=== PATIENT | male | born 1945 | race Caucasian/White ===

== ENCOUNTER 2021-04-30 14:35 | Outpatient (REF) | payer MEDICARE, SELFPAY ==
[2021-04-30 16:53] LABS: Abs Immature Grans 0.07 10^3/uL (0.0-0.06); Absolute Basophil Count 0.02 10^3/uL (0.0-0.2); Absolute Eosinophil Count 0.03 10^3/uL (0.0-0.7); Absolute Lymphocyte Count 1.24 10^3/uL (1.2-3.4); Absolute Monocyte Count 0.34 10^3/uL (0.1-0.8); Absolute Neutrophil Count 3.16 10^3/uL (1.2-6.7); Basophils % 0.4; Eosinophils % 0.6; HCT 38.9 % (40.0-50.0); HGB 12.9 g/dL (13.5-17.5); Immature Grans % 1.4; Lymphocytes % 25.5; MCH 31.7 pg (27.0-33.0); MCHC 33.2 % (32.0-36.0); MCV 95.6 fL (80-95); MPV 10.4 fL (8.0-11.0); Neutrophils % 65.1; Nucleated RBC 0 %; Platelet Count 128 10^3/uL (130-400); RBC 4.07 10^6/uL (4.36-5.78); RDW 12.4 % (11.8-14.1); RDW-SD 43.8 fL; WBC 4.86 10^3/uL (4.4-10.8)
[2021-04-30 21:30] LABS: Rheumatoid Factor <8.6 IU/mL (<12.0)
[2021-05-01 09:18] LABS: IgA 387 mg/dL (85-499); IgG 1328 mg/dL (610-1,616); IgM 80 mg/dL (35-242)
[2021-05-01 10:18] LABS: Cyclic Citrullinated Peptide <2.5 U/mL (<5.0)
[2021-05-02 10:30] LABS: IgE 160 IU/mL (<158)
[2021-05-02 14:01] LABS: ANA Interpretation Positive (Negative); ANA Titer Pattern 1:80 Homogeneous; ANA Titer Pattern 2 1:160 Speckled
== END 2021-04-30 14:36 | disposition home or self-care (01) ==
LOC: LBN 14:35
PROVIDERS: Student in an Organized Health Care Education/Training Program; Visit Provider Family Medicine
DX: J47.9 Bronchiectasis, uncomplicated (principal)
CPT/HCPCS: 82784; 86200; 82785; 82787; 85025; 86038; 86431

== ENCOUNTER 2021-05-01 21:58 | Outpatient (REF) | payer MEDICARE, SELFPAY ==
--- OUTSIDE RECORDS SUMMARY | 2021-05-01 22:03 | XMS_ITS ---
:1945 Author Care Team Providers Name Role Phone Unavailable Orthopedic Surgeon Unavailable TERRELL VELÁSQUEZ MD Horologist Unavailable ANDREW SAMUEL DO Primary Care Provider [phone] GISELE WALSH General Surgeon [phone] REUBEN CLARK MD Urologist [phone] JENNIFER GEORGE MD Technical Project Lead [phone] Allergies Code Code System Name Reaction Severity Status Onset 1191 RxNorm Aspirin ? ? Active ? 9062176 RxNorm Latex ? ? Active ? 325335 RxNorm Levaquin ? ? Active ? Penicillins ? ? Active ? Medications Name Status Start Date Stop Date ? ? albuterol sulfate 1.25 mg/3 mL solution for nebulization Active ? Not available INHALE THE CONTENTS OF ONE VIAL VIA NEBULIZER FOUR TIMES A DAY amlodipine 2.5 mg tablet Completed 07/06/2017 017 1 (one) Tablet: daily Arnuity Ellipta 100 mcg/actuation powder for inhalation Active ? Not available Inhale 1 puff twice a day by inhalation route for 90 days. azithromycin 250 mg tablet Completed ? 02/07 benzonatate 200 mg capsule Completed 12/19/201512/28 1 (one) Capsule: every 8 hours prn cough bisacodyl 10 mg rectal suppository Completed ? 02/08/2020 Insert 1 suppository every day by rectal route for 5 days. carvedilol 12.5 mg tabs Completed ? 020 carvedilol 12.5 mg tablet Active ? Not av ailable TAKE ONE TABLET BY MOUTH TWICE A DAY cephalexin 500 mg capsule Completed ? 2017 cephalexin 500 mg tablet Completed ? 018 Take 1 tablet every 6 hours by oral route for 5 days. ciprofloxacin 500 mg tablet Completed ? 11/12 colchicine 0.6 mg tablet Active ? Not jazmine ilable Take 2 tablets every day by oral route as directed. combivent aer 20-100 Completed ? 05/09/20 20 Combivent Respimat 20 mcg-100 mcg/actuation solution for inhalat ion Active ? Not available INHALE ONE PUFF BY MOUTH FOUR TIMES A DAY cyclobenzaprine 10 mg tablet Completed 06/30/2016 1 (one) Tablet: every eight hours, as needed doxycycline hyclate 100 mg capsule Completed ? 01/31/2019 Take 1 capsule twice a day by oral route. doxycycline hyclate 100 mg tablet Completed ? 01/31/2019 doxycycline hyclate 150 mg tablet,delayed release Completed 07/21/2017 07/31/2017 1 Tablet: bid - twice daily erythromycin 5 mg/gram (0.5 %) Completed ? 1 eye ointment fluorometholone 0.1 % eye drops,suspension Active ? Not available right eye daily at night fluoxetine 10 mg tablet Completed 05/13/2015 08/16/20 15 1 (one) Tablet Tablet: daily flutic/salme aer 500/50 Completed ? 05/09/20 20 fluticasone 500 mcg-salmeterol 50 mcg/dose blistr powdr for inha lation Active ? Not available INHALE 1 PUFF BY MOUTH TWICE DAILY Fluzone High-Dose [id number] (PF) Completed ? 08/10/2018 180 mcg/0.5 mL intramuscular syringe Fluzone High-Dose Quad (PF) 240 mcg/0.7 mL IM syringe Ac tive ? Not available INJECT ONCE Virtussin AC 10 mg-100 mg/5 mL Active ? N ot available oral liquid hydrocodone 5 mg-acetaminophen Completed ? 0 12/16/2018 325 mg tablet hydroxyzine HCl 25 mg tablet Active ? Not available 1 daily ibuprofen 600 mg tablet Completed ? 12/17/19 19 ibuprofen 800 mg tablet Active ? Not avai lable TAKE ONE TABLET BY MOUTH THREE TIMES A DAY indomethacin ER 75 mg capsule,extended release Completed 1 10/16/2014 03/23/2016 1 (one) Capsule ER Capsule ER: daily, as needed lactulose 10 gram/15 mL oral Completed ? solution lactulose 20 gram/30 mL oral solution Active ? Not available Take 30 mL twice a day by oral route as needed. levofloxacin 500 mg tablet Active ? Not a vailable levofloxacin 750 mg tablet Completed ? 04/15 lidocaine 5 % topical patch Active ? Not available lisinopril 5 mg tabs Completed ? 05/09/2020 lisinopril 5 mg tablet Active ? Not avail able Mucinex 600 mg tablet, extended release Active ? Not available Take 1 tablet every 12 hours by oral route. oxycodone 5 mg tablet Completed ? 08/10/2018 oxygen Active ? Not available daily pramipexole 0.25 mg tablet Active ? Not a vailable TAKE ONE TABLET BY MOUTH TWICE A DAY pramipexole dihydrochloride 0.25 Completed ? 05/09/2020 mg tabs prednisone 5 mg tabs Completed ? 05/09/2020 prednisone 10 mg tablet Completed ? 02/01/20 19 prednisone 20 mg tablet Completed ? 02/08/20 20 prednisone 5 mg tablet Active ? Not avail able prednisone 5 mg/5 mL oral solution Completed 12/19/2015 03/23/2016 1 (one) Solution: Each morning probenecid 500 mg tabs Completed ? 05/09/20 20 probenecid 500 mg tablet Active ? Not jazmine ilable TAKE ONE TABLET BY MOUTH TWICE A DAY ranitidine 300 mg capsule Completed 07/06/20172016 1 (one) Capsule: daily ropinirole 1 mg tablet Active ? Not avail able TAKE 1 TABLET BY MOUTH ONCE DAILY AT BEDTIME Spiriva with HandiHaler 18 mcg and inhalation capsules Completed 03/07/2015 07/17/2015 1 (one) Capsule Capsule: qd - daily stiolto aer 2.5-2.5 Active ? Not jazmine ilable Stiolto Respimat 2.5 mcg-2.5 mcg/actuation solution for inhalati on Active ? Not available INHALE 2 PUFFS BY MOUTH EVERY MORNING sulfamethoxazole 800 Completed ? 11/23/2019 mg-trimethoprim 160 mg tablet tadalafil 5 mg tablet Active ? Not availa ble Take 1 tablet every day by oral route for 30 days. tamsulosin 0.4 mg capsule Active ? Not av ailable TAKE ONE CAPSULE BY MOUTH TWICE A DAY temazepam 30 mg caps Completed ? 05/09/2020 temazepam 30 mg capsule Active ? Not avai lable Tessalon Perles 100 mg capsule Active ? N ot available Take 2 capsules 3 times a day by oral route as needed. theophylline er 600 mg tb24 Completed ? theophylline ER 600 mg tablet,extended release 24 hr Active ? Not available TAKE ONE TABLET BY MOUTH TWO TIMES A DAY Trelegy Ellipta 200 mcg-62.5 mcg-25 mcg powder for inhalation Ac tive ? Not available Inhale 1 puff every day by inhalation route for 30 days. Zyrtec 10 mg tablet Active ? Not availabl e Take 1 tablet every day by oral route for 30 days. Notes: reviewed with pt- 0 Problems Name Status Onset Date Source ? Chronic Obstructive Lung Disease Unknown 10/20/2018 ? Anxiety Active 12/16/2018 ? Bronchiectasis Active 12/21/2018 ? Chronic Obstructive Lung Disease Active 02/28/2019 ? Urinary Incontinence Active 02/21/2020 ? Nocturia Active 02/21/2020 ? Gout Active ? History Insomnia Active ? History Hypertensive Disorder Active ? History Heart Failure Active ? History Disorder of Upper Respiratory System Unknown ? History Acute Exacerbation of Chronic Unknown ? Hi story Obstructive Airways Disease Severe Persistent Asthma Unknown ? History Bronchiectasis Unknown ? History Chronic Obstructive Lung Disease Unknown ? History Chronic Kidney Disease Stage 3 Active ? H istory Chronic Kidney Disease Active ? History Large Prostate Active ? History Itching Active ? History Arthropathy Active ? History Shoulder Joint Pain Active ? History Neck Pain Active ? History Torticollis Active ? History Osteoporosis Active ? History Anesthesia of Skin Active ? History Pleuritic Pain Unknown ? History Placentography Abnormal Unknown ? History Active Immunization Unknown ? History Disorder of Skin And/or Subcutaneous Active ? History Tissue Adult Health Examination Unknown ? History Screening for Malignant Neoplasm of Unknown ? History Prostate Screening for Cardiovascular System Unknown ? History Disease General Examination of Patient Unknown ? H istory Disorder of Phosphate, Calcium and Unknown ? History Vitamin D Metabolism Procedure by Method Unknown ? History Procedures Date Name Performed by ? 10/18/2018 Open Reduction of Fracture with Internal Fixation Information not available Notes: R distal radius fx, has hardwa re 10/10/2006 Shoulder Surgery Information not avai lable Notes: Right Shoulder Biceps Tendon R epair 03/21/2018 US, Echocardiogram [facility] [address], [place] [address] ([address]) 04/28/2018 XR, Knee, 4 or More View [facility] Rad[facility] (Internal) [address] [place] [address] (Work Place) 08/10/2018 Electrocardiogram [facility] [address] [place] [address] (Work Place) 08/10/2018 [facility] [address] [place] [address] (Work Place) 10/26/2018 XR, Chest, [facility] [address] [place] [address] (Work Place) 11/02/2018 XR, Wrist, [facility] [address] [place] [address] (Work Place) 11/16/2018 XR, Wrist, [facility] [address] [place] [address] (Work Place) 11/18/2018 XR, Chest, [facility] [address] [place] [address] (Work Place) 12/16/2018 XR, Wrist, 2 View [facility] Radiology (Internal) [address] [place] [address] (Work Place) 01/19/2019 XR, Wrist, 2 View [facility] Radiology (Internal) [address] [place] [address] (Work Place) 04/05/2019 XR, Ankle, 3 or More View [facility] Radiology (Internal) [address] [place] [address] (Work Place) 11/06/2020 XR, Chest, [facility] [address] [place] [address] (Work Place) 11/14/2020 CT, Chest, [facility] [address] [place] [address] (Work Place) Notes: right shoulder surgery 30 03 Results Lab Results Date Name Specimen Result Interpretation Description Value Range Status Address ? 02/23/2020 Urinalysis, Urine ? Color Yellow ? ? P _urology: Dipstick, Reflex [address] [facility] ? ? Urine ? Appearanc Clear ? ? P_urol ogy: e [address] [facility] ? ? Urine ? Glucose Normal ? ? P_urolog y: [address] [facility] ? ? Urine ? Bilirubin Negative ? ? P_ur ology: [address] [facility] ? ? Urine ? Ketones Negative ? ? P_urol ogy: [address] [facility] ? ? Urine ? Specific 1.020 ? ? P[facility]urolo gy: [place] [facility] ? ? Urine ? Blood Negative ? ? P_urolog y: [address] [facility] ? ? Urine ? Ph 6.0 ? ? P_urology: [address] [facility] ? ? Urine ? Protein Negative ? ? P_urol ogy: [address] [facility] ? ? Urine ? Urobilino 0.2 ? ? P_urol ogy: gen [address] [facility] ? ? Urine ? Nitrite negative ? ? P_urol ogy: [address] [facility] ? ? Urine ? Leukocyte Negative ? ? P_ur ology: Esterase 41 [facility] 02/08/2020 PSA, Serum or S ? PSA, 0.4 NG/mL 0.0-4. [facility] Plasma Total 0 Country NG/mL Hospital Lab (Internal) : [address] 02/08/2020 Venipuncture Blood ? Location Left ? ? P_nc venous Antecubital [facility] [place]: [address] , [place] ? ? Blood ? Needle 21g ? ? P_nc venous Vacutainer [facility] [place]: [address] , [place] ? ? Blood ? Number of 1 ? ? P_nc venous Attempts [facility] [place]: [address] , [place] ? ? Blood ? Successfu Yes ? ? P_nc venous l [facility] [place]: [address] , [place] ? ? Blood ? Dressing Pressure ? ? P_nc venous Band-aid Primary [facility] [place]: [address] 07/18/2019 CBC W/ Auto Diff BLD - Wbc 6.5 10*3/uL 5.0-1 0 Final North .0 [place] 10*3/u Hospital L Lab (Internal) : [address] ? ? BLD Low Rbc 4.51 4.60-6 Final North 10*6/uL .00 [facility] 10*6/u Hospital L Lab (Internal) : [address] ? ? BLD - Hgb 14.1 g/dL 14.0-1 Final North 8.0 [place] g/dL Hospital Lab (Internal) : [address] ? ? BLD - Hct 41.9 % 41.0-5 Final [place] 1.0 % [facility] Lab (Internal) : [address] ? ? BLD - Mcv 92.9 fL 80.0-9 Final [place] 6.0 fL [facility] Lab (Internal) : [address] ? ? BLD - Mch 31.3 pg 26.0-3 Final [place] 2.0 pg [facility] Lab (Internal) : [address] ? ? BLD - Mchc 33.7 g/dL 31.0-3 Final [place] 5.0 [place] g/dL Hospital Lab (Internal) : [address] ? ? BLD - Rdw 13.2 % 11.5-1 Final [place] 4.5 % [facility] Lab (Internal) : [address] ? ? BLD - Plt 176 10*3/uL 130-45 Final North 0 [facility] 10*3/u Hospital L Lab (Internal) : [address] ? ? BLD - Anc 3.75 ? Final [place] 10*3/uL [facility] (Internal) : [address] ? ? BLD - Neutro 57.3 % 40.0-7 Final [place] 5.0 % [facility] Lab (Internal) : [address] ? ? BLD - Lymph 31.5 % 20.0-5 Final [place] 0.0 % [facility] (Internal) : [address] ? ? BLD - [place] 9.5 % 2.0-10 Final North .0 % [facility] Lab (Internal) : [address] ? ? BLD Low Eos 0.8 % 1.0-6. Final North 0 % [facility] Lab (Internal) : [address] ? ? BLD - Baso 0.3 % 0.0-1. Final North 0 % [facility] Lab (Internal) : [address] ? ? BLD - Ig 0.6 % 0.0-0. Final North 9 % [facility] Hospital Lab (Internal) : [address] 07/18/2019 BMP, Serum or S - g/r 89 mg/dL 74-106 Pallavi l [place] Plasma mg/dL [facility] Hospital Lab (Internal) : [address] ? ? S High Bun 30 mg/dL 9-20 Final [place] mg/dL [facility] Hospital Lab (Internal) : [address] ? ? S - Crea 1.00 mg/dL 0.66-1 Final North .25 [place] mg/dL Hospital Lab (Internal) : [address] ? ? S High Ca 10.4 mg/dL 8.4-10 Final [place] .2 [place] mg/dL Hospital Lab (Internal) : [address] ? ? S - Na 139 mmol/L 137-14 Final [place] 5 [place] mmol/L Hospital Lab (Internal) : [address] ? ? S - K 4.1 mmol/L 3.5-5. Final [place] 1 [place] mmol/L Hospital Lab (Internal) : [address] ? ? S - Cl 101 mmol/L 98-107 Final [place] mmol/L [facility] Lab (Internal) : [address] ? ? S - Tco2 26.0 mmol/L 22.0-3 Final [place] 0.0 [place] mmol/L Hospital Lab (Internal) : [address] 07/18/2019 Prothrombin Time BLD - Pt 10.6 S 9.1-11 Fin al [place] .7 S [facility] Lab (Internal) : [address] ? ? BLD - Inr 1.1 ? Final [facility] Hospital Lab (Internal) : [address] 07/18/2019 Partial BLD - PTT (Ip) 25 s 22-35 Final No rth Thromboplastin s Co untry Time Hospital Lab (Internal) : [address] 07/18/2019 Troponin I, S - Trop <0.06 NG/mL 0.00-0 Fin [facility] Serum or Plasma .06 C [place]untry NG/mL Hospital Lab (Internal) : [address] 07/18/2019 Troponin I, S - Trop <0.06 NG/mL 0.00-0 Fin [facility] Serum or Plasma .06 C ountry NG/mL Hospital Lab (Internal) : [address] 05/19/2019 CBC W/ Auto Diff BLD - Wbc 8.8 10*3/uL 5.0-1 0 Final North .0 [facility] 10*3/u Hospital L Lab (Internal) : [address] ? ? BLD Low Rbc 3.72 4.60-6 Final [place] 10*6/uL .00 [facility] 10*6/u Hospital L Lab (Internal) : [address] ? ? BLD Low Hgb 11.8 g/dL 14.0-1 Final [place] 8.0 [place] g/dL Hospital Lab (Internal) : [address] ? ? BLD Low Hct 35.1 % 41.0-5 Final [place] 1.0 % [facility] Lab (Internal) : [address] ? ? BLD - Mcv 94.4 fL 80.0-9 Final [place] 6.0 fL [facility] (Internal) : [address] ? ? BLD - Mch 31.7 pg 26.0-3 Final [place] 2.0 pg [facility] Lab (Internal) : [address] ? ? BLD - Mchc 33.6 g/dL 31.0-3 Final [place] 5.0 [place] g/dL Hospital Lab (Internal) : [address] ? ? BLD - Rdw 13.6 % 11.5-1 Final [place] 4.5 % [facility] (Internal) : [address] ? ? BLD - Plt 136 10*3/uL 130-45 Final [place] 0 [facility] 10*3/u Hospital L Lab (Internal) : [address] ? ? BLD - Anc 6.58 ? Final [place] 10*3/uL [facility] (Internal) : [address] ? ? BLD - Neutro 74.5 % 40.0-7 Final [place] 5.0 % [facility] (Internal) : [address] ? ? BLD Low Lymph 13.8 % 20.0-5 Final [place] 0.0 % [facility] (Internal) : [address] ? ? BLD - [place] 8.9 % 2.0-10 Final [place] .0 % [facility] (Internal) : [address] ? ? BLD Low Eos 0.7 % 1.0-6. Final [place] 0 % [facility] Lab (Internal) : [address] ? ? BLD - Baso 0.2 % 0.0-1. Final [place] 0 % [facility] Lab (Internal) : [address] ? ? BLD High Ig 1.9 % 0.0-0. Final [place] 9 % [facility] Lab (Internal) : [address] 05/19/2019 CMP, Serum or S High g/r 115 mg/dL 74-106 Fin al [place] Plasma mg/dL [facility] Lab (Internal) : [address] ? ? S - Bun 18 mg/dL 9-20 Final [place] mg/dL [facility] (Internal) : [address], Daniel t ? ? S - Crea 0.90 mg/dL 0.66-1 Final [place] .25 [place] mg/dL Hospital Lab (Internal) : [address], Daniel t ? ? S - Ca 9.3 mg/dL 8.4-10 Final [place] .2 [facility] mg/dL Hospital Lab (Internal) : [address], Daniel t ? ? S - Na 137 mmol/L 137-14 Final [place] 5 [place] mmol/L Hospital Lab (Internal) : [address] ? ? S - K 4.0 mmol/L 3.5-5. Final [place] 1 [place] mmol/L Hospital Lab (Internal) : [address] ? ? S - Cl 106 mmol/L 98-107 Final [place] mmol/L [facility] Lab (Internal) : [address] ? ? S - Tco2 23.0 mmol/L 22.0-3 Final [place] 0.0 [facility] mmol/L Hospital Lab (Internal) : [address] ? ? S - Tp 7.6 g/dL 6.3-8. Final [place] 2 g/dL [facility] Lab (Internal) : [address] ? ? S - Alb 4.0 g/dL 3.5-5. Final [place] 0 g/dL [facility] Lab (Internal) : [address] ? ? S - Tbil 0.5 mg/dL 0.2-1. Final [place] 3 [facility] mg/dL Hospital Lab (Internal) : [address] ? ? S - Alp 97 U/L 38-126 Final [place] U/L [facility] Lab (Internal) : [address] ? ? S - Alt 28 U/L 21-72 Final [place] (Sgpt) U/L [facility] Lab (Internal) : [address] ? ? S - Ast 34 U/L 17-59 Final [place] (Sgot) U/L [facility] Lab (Internal) : [address] 05/19/2019 Urinalysis, UR - UA-color yellow pale Final [place] Dipstick, Reflex yellow [facility] Hospital Lab (Internal) : [address] ? ? UR - UA-appear clear clear Final [facility] Hospital Lab (Internal) : [address] ? ? UR - UA-spec 1.015 1.003- Final [place] Grav 1.035 [facility] Lab (Internal) : [address] ? ? UR - UA-pH 6.0 [pH] 4.6-8. Final [place] 0 [pH] [facility] Lab (Internal) : [address] ? ? UR - UA-leuk negative negati Final [place] Est ve [facility] Lab (Internal) : [address] ? ? UR - UA-nitrit negative negati Final Nort [facility] [place] ve [facility] ([facility] : [address] ? ? UR - UA-prot negative negati Final [facility] Lab (Internal) : [address] ? ? UR - UA-gluc negative negati Final [facility] (Internal) : [address] ? ? UR - UA-ketone negative negati Final [facility] (Internal) : [address] ? ? UR - UA-urobil normal normal Final [facility] (Internal) : [address] ? ? UR - UA-bili negative negati Final [facility] (Internal) : [address] ? ? UR - UA-blood negative negati Final [facility] (Internal) : [address] 01/31/2019 CBC W/ Auto Diff BLD - Wbc 5.4 10*3/uL 5.0-1 0 Final North .0 [facility] 10*3/u Hospital L Lab (Internal) : [address] ? ? BLD Low Rbc 4.21 4.60-6 Final [place] 10*6/uL .00 [facility] 10*6/u Hospital L Lab (Internal) : [address] ? ? BLD Low Hgb 13.2 g/dL 14.0-1 Final [place] 8.0 [place] g/dL Hospital Lab (Internal) : [address] ? ? BLD Low Hct 40.5 % 41.0-5 Final [place] 1.0 % [facility] Lab (Internal) : [address] ? ? BLD High Mcv 96.2 fL 80.0-9 Final [place] 6.0 fL [facility] (Internal) : [address] ? ? BLD - Mch 31.4 pg 26.0-3 Final [place] 2.0 pg [facility] Lab (Internal) : [address] ? ? BLD - Mchc 32.6 g/dL 31.0-3 Final [place] 5.0 [facility] g/dL Hospital Lab (Internal) : [address] ? ? BLD - Rdw 14.2 % 11.5-1 Final [place] 4.5 % [facility] (Internal) : [address] ? ? BLD Low Plt 103 10*3/uL 130-45 Final North 0 [facility] 10*3/u Hospital L Lab (Internal) : [address] ? ? BLD - Anc 4.08 ? Final [place] 10*3/uL [facility] (Internal) : [address] ? ? BLD - Neutro 74.9 % 40.0-7 Final [place] 5.0 % [facility] (Internal) : [address] ? ? BLD Low Lymph 15.1 % 20.0-5 Final [place] 0.0 % [facility] (Internal) : [address] ? ? BLD - [place] 8.5 % 2.0-10 Final North .0 % [facility] (Internal[facility] : [address] ? ? BLD Low Eos 0.2 % 1.0-6. Final [place] 0 % [facility] (Internal) : [address] ? ? BLD - Baso 0.2 % 0.0-1. Final [place] 0 % [facility] (Internal) : [address] ? ? BLD High Ig 1.1 % 0.0-0. Final [place] 9 % [facility] Lab (Internal) : [address] 01/31/2019 BMP, Serum or S - g/r 102 mg/dL 74-106 Fin al [place] Plasma mg/dL [facility] ([facility] : [address], [address] t ? ? S - Bun 15 mg/dL 9-20 Final [place] mg/dL [facility] ([facility] : [address] ? ? S - Crea 0.80 mg/dL 0.66-1 Final North .25 [facility] mg/dL Hospital Lab (Internal) : [address], [address] ? ? S - Ca 9.9 mg/dL 8.4-10 Final North .2 [facility] mg/dL Hospital Lab (Internal) : [address], [address] ? ? S - Na 142 mmol/L 137-14 Final [place] 5 [place] mmol/L Hospital Lab (Internal) : [address] ? ? S - K 3.6 mmol/L 3.5-5. Final [place] 1 [place] mmol/L Hospital Lab (Internal) : [address] ? ? S High Cl 109 mmol/L 98-107 Final [place] mmol/L [facility] Lab (Internal) : [address] ? ? S - Tco2 28.0 mmol/L 22.0-3 Final [place] 0.0 [facility] mmol/L Hospital Lab (Internal) : [address] 01/31/2019 Magnesium, QN, S - mg 1.8 mg/dL 1.6-2. Fi nal [place] Serum or Plasma 3 C ountry mg/dL Hospital Lab (Internal) : [address] 01/31/2019 Vitamin B12, S - Vit B12 924.0 pg/mL 239.0- Final [place] Serum 931.0 [place] pg/mL Hospital Lab (Internal) : [address] 01/31/2019 Folate, Serum S - Folate 14.10 NG/mL 2.76-2 Final [place] 0.00 [place] NG/mL Hospital Lab (Internal) : [address] 01/06/2019 Lactic Acid, S - La 0.7 mmol/L 0.7-2. Fin al [place] Blood 1 [place] mmol/L Hospital Lab (Internal) : [address] 01/06/2019 CBC W/ Auto Diff BLD - Wbc 8.3 10*3/uL 5.0-1 0 Final North .0 [facility] 10*3/u Hospital L Lab (Internal) : [address] ? ? BLD Low Rbc 4.01 4.60-6 Final [place] 10*6/uL .00 [facility] 10*6/u Hospital L Lab (Internal) : [address] ? ? BLD Low Hgb 12.5 g/dL 14.0-1 Final [place] 8.0 [place] g/dL Hospital Lab (Internal) : [address] ? ? BLD Low Hct 37.7 % 41.0-5 Final [place] 1.0 % [facility] (Internal) : [address] ? ? BLD - Mcv 94.0 fL 80.0-9 Final [place] 6.0 fL [facility] (Internal) : [address] ? ? BLD - Mch 31.2 pg 26.0-3 Final [place] 2.0 pg [facility] (Internal) : [address] ? ? BLD - Mchc 33.2 g/dL 31.0-3 Final [place] 5.0 [place] g/dL Hospital Lab (Internal) : [address] ? ? BLD - Rdw 13.0 % 11.5-1 Final [place] 4.5 % [facility] (Internal) : [address] ? ? BLD Low Plt 120 10*3/uL 130-45 Final [place] 0 [facility] 10*3/u [facility] L Lab (Internal) : [address] ? ? BLD - Anc 6.02 ? Final [place] 10*3/uL [facility] ([facility] : [address] ? ? BLD - Neutro 72.8 % 40.0-7 Final [facility] 5.0 % [facility] (Internal) : [address] ? ? BLD Low Lymph 15.8 % 20.0-5 Final [facility] 0.0 % [facility] ([facility] : [address] ? ? BLD - [place] 9.2 % 2.0-10 Final [facility] .0 % [facility] ([facility] : [address] ? ? BLD Low Eos 0.2 % 1.0-6. Final [facility] 0 % [facility] ([facility] : [address] ? ? BLD - Baso 0.1 % 0.0-1. Final [place] 0 % [facility] ([facility] : [address] ? ? BLD High Ig 1.9 % 0.0-0. Final [facility] 9 % [facility] ([facility] : [address] 01/06/2019 CMP, Serum or S High g/r 131 mg/dL 74-106 Fin al [place] Plasma mg/dL [facility] ([facility]) : [address], [place] t ? ? S - Bun 18 mg/dL 9-20 Final [place] mg/dL [facility] Lab (Internal) : [address] ? ? S - Crea 0.90 mg/dL 0.66-1 Final [place] .25 [facility] mg/dL Hospital Lab (Internal) : [address] ? ? S - Ca 9.3 mg/dL 8.4-10 Final [place] .2 [facility] mg/dL Hospital Lab (Internal) : [address] ? ? S - Na 139 mmol/L 137-14 Final [place] 5 [place] mmol/L Hospital Lab (Internal) : [address] ? ? S - K 3.6 mmol/L 3.5-5. Final [place] 1 [place] mmol/L Hospital Lab (Internal) : [address] ? ? S - Cl 103 mmol/L 98-107 Final [place] mmol/L [facility] Lab (Internal) : [address] ? ? S - Tco2 29.0 mmol/L 22.0-3 Final [place] 0.0 [facility] mmol/L Hospital Lab (Internal) : [address] ? ? S - Tp 7.1 g/dL 6.3-8. Final [place] 2 g/dL [facility] Lab (Internal) : [address] ? ? S - Alb 3.6 g/dL 3.5-5. Final [place] 0 g/dL [facility] Hospital Lab (Internal) : [address] ? ? S - Tbil 0.7 mg/dL 0.2-1. Final [place] 3 [place] mg/dL Hospital Lab (Internal) : [address] ? ? S - Alp 96 U/L 38-126 Final [place] U/L [facility] Lab (Internal) : [address] ? ? S Low Alt 12 U/L 21-72 Final [place] (Sgpt) U/L [facility] Lab (Internal) : [address] ? ? S - Ast 18 U/L 17-59 Final [place] (Sgot) U/L [facility] Hospital Lab (Internal) : [address] 01/06/2019 CK (Creatine S Low Cpk 43 U/L 55-170 Final [place] Kinase), Total, U/L [facility]untry Serum Hospital Lab (Internal) : [address] 01/06/2019 Magnesium, QN, S Low mg 1.5 mg/dL 1.6-2. Fi nal [place] Serum or Plasma 3 C ountry mg/dL Hospital Lab (Internal) : [address] t 01/06/2019 Troponin I, S - Trop <0.06 NG/mL 0.00-0 Fin al [place] Serum or Plasma .06 C ountry NG/mL Hospital Lab (Internal) : [address] t 01/06/2019 BNP (B-type S High Nt-probnp 1070 pg/mL 0-125 Final [place] Natriuretic pg/mL Count ry Peptide), Hospita l Prohormone Lab N-terminal, (Inte rnal): Quant, [address], [place] Blood 01/06/2019 Rapid Flu (A+B) NASAL - Final microbiolog ? Final [place] y [facility] Hospital Lab (Internal) : [address] t 01/06/2019 Urinalysis, UR - UA-color yellow pale Final [place] Dipstick, Reflex yellow [facility] Hospital Lab (Internal) : [address] ? ? UR - UA-appear clear clear Final [facility] Lab (Internal) : [address] ? ? UR - UA-spec <=1.005 1.003- Final [place] Grav 1.035 [facility] Lab (Internal) : [address] ? ? UR - UA-pH 6.0 [pH] 4.6-8. Final [place] 0 [pH] [facility] Lab (Internal) : [address] ? ? UR - UA-leuk negative negati Final [facility] Lab (Internal) : [address] ? ? UR - UA-nitrit negative negati Final Nort h e [facility] Lab (Internal) : [address] ? ? UR - UA-prot negative negati Final [facility] Lab (Internal) : [address] ? ? UR - UA-gluc negative negati Final [facility] Lab (Internal) : [address], [place] ? ? UR - UA-ketone negative negati Final [facility] Lab (Internal) : [address] ? ? UR - UA-urobil normal normal Final [facility] Lab (Internal) : [address] ? ? UR - UA-bili negative negati Final [facility] Lab (Internal) : [address] ? ? UR ABNORM UA-blood trace negati Final [facility] Lab (Internal) : [address] 01/06/2019 Urinalysis, UR - UA-WBC 0-3 [hpf] 0-3 Pallavi l [place] Microscopic [hpf] Count Hospital Lab (Internal) : [address] ? ? UR - UA-RBC 0-2 [hpf] 0-2 Final [place] [[facility] Lab (Internal) : [address] ? ? UR - UA-bacter rare [hpf] none Final No rth ia seen [facility] [[facility]] Hospital Lab (Internal) : [address] ? ? UR - UA-epithe rare [hpf] none Final No rth lial seen [facility] [[facility]] Hospital Lab (Internal) : [address] ? ? UR - UA-mucus none seen none Final Nort h [hpf] seen [facility] [[facility]] [facility] Lab (Internal) : [address] 01/06/2019 Troponin I, S - Trop <0.06 NG/mL 0.00-0 [facility] Serum or Plasma .06 C ountry NG/mL Hospital Lab (Internal) : [address] 12/29/2018 Culture, Sputum SPT - Final microbiolog ? Final [place] y results [facility] Lab (Internal) : [address] 11/18/2018 CBC W/ Auto Diff BLD - Wbc 5.3 10*3/uL 5.0-1 0 Final [place] .0 [facility] 10*3/u Hospital L Lab (Internal) : [address] ? ? BLD Low Rbc 3.96 4.60-6 Final [place] 10*6/uL .00 [facility] 10*6/u Hospital L Lab (Internal) : [address], [place] ? ? BLD Low Hgb 12.3 g/dL 14.0-1 Final [place] 8.0 Country g/dL Hospital Lab (Internal) : [address] ? ? BLD Low Hct 38.5 % 41.0-5 Final [place] 1.0 % [facility] Lab (Internal) : [address] ? ? BLD High Mcv 97.2 fL 80.0-9 Final [place] 6.0 fL [facility] Lab (Internal) : [address] ? ? BLD - Mch 31.1 pg 26.0-3 Final [place] 2.0 pg [facility] Lab (Internal) : [address] ? ? BLD - Mchc 31.9 g/dL 31.0-3 Final [place] 5.0 Country g/dL Hospital Lab (Internal) : [address] ? ? BLD - Rdw 14.5 % 11.5-1 Final [place] 4.5 % [facility] (Internal) : [address] ? ? BLD Low Plt 106 10*3/uL 130-45 Final [place] 0 [facility] 10*3/u Hospital L Lab (Internal) : [address] 11/18/2018 BMP, Serum or S High g/r 162 mg/dL 74-106 Fin al [place] Plasma mg/dL [facility] Hospital Lab (Internal) : [address] ? ? S - Bun 14 mg/dL 9-20 Final [place] mg/dL [facility] Lab (Internal) : [address] ? ? S - Crea 1.00 mg/dL 0.66-1 Final [place] .25 [facility] mg/dL Hospital Lab (Internal) : [address] ? ? S - Ca 9.3 mg/dL 8.4-10 Final [place] .2 Country mg/dL Hospital Lab (Internal) : [address] ? ? S - Na 142 mmol/L 137-14 Final [place] 5 [place] mmol/L Hospital Lab (Internal) : [address] ? ? S - K 3.9 mmol/L 3.5-5. Final [place] 1 [place] mmol/L Hospital Lab (Internal) : [address] ? ? S - Cl 103 mmol/L 98-107 Final [place] mmol/L [facility] Hospital Lab (Internal) : [address] ? ? S - Tco2 29.0 mmol/L 22.0-3 Final [place] 0.0 [facility] mmol/L Hospital Lab (Internal) : [address] 11/18/2018 Differential, BLD High Polys 85 % 40-75 Final [facility], Blood % Cou ntr Hospital Lab (Internal) : [address] ? ? BLD - Bands 0 % 0-5 % Final [facility] Lab (Internal) : [address] ? ? BLD Low Lymphs 14 % 20-[address] [facility] Lab (Internal) : [address] ? ? BLD Low [place] 1 % 2-10 % Final [facility] Lab (Internal) : [address] ? ? BLD - Eos 0 % 0-6 % Final [facility] (Internal) : [address] ? ? BLD - Baso 0 % 0-1 % Final [facility] Lab (Internal) : [address] ? ? BLD - Atyp 0 % ? Final [facility] Lab (Internal) : [address] ? ? BLD ABNORM Plts, low adequa Final [facility] Est. te [facility] Hospital Lab (Internal) : [address] ? ? BLD - RBC normal normal Final [place] Morphology Countr Hospital Lab (Internal) : [address] 11/18/2018 Neutrophil BLD - Anc-manua 4.48 ? Final [place] Count, Absolute l 10*3/uL Country (Anc), Blood Hosp ital Lab (Internal) : [address] 11/18/2018 TSH, Serum or S - Tsh 0.80 0.47-4 Final [place] Plasma u[IU]/mL .68 Country u[IU]/ Hospital mL Lab (Internal) : [address] 11/18/2018 Troponin I, S - Trop <0.06 NG/mL 0.00-0 Fin al [place] Serum or Plasma .06 C ountry NG/mL Hospital Lab (Internal) : [address] 11/18/2018 BNP (B-type S High Nt-probnp 587 pg/mL 0-125 F inal [place] Natriuretic pg/mL Count ry Peptide), Hospita l Prohormone Lab N-terminal, (Inte rnal): Quant, [address] Immuno[address], Shirlene Bell Blood 10/12/2018 CBC W/ Auto Diff BLD - Wbc 7.9 10*3/uL 5.0-1 0 Final North .0 [facility] 10*3/u Hospital L Lab (Internal) : [address] ? ? BLD Low Rbc 4.22 4.60-6 Final [place] 10*6/uL .00 [facility] 10*6/u Hospital L Lab (Internal) : [address] ? ? BLD Low Hgb 13.2 g/dL 14.0-1 Final [place] 8.0 [facility] g/dL Hospital Lab (Internal) : [address] ? ? BLD Low Hct 40.8 % 41.0-5 Final [place] 1.0 % [facility] Lab (Internal) : [address] ? ? BLD High Mcv 96.7 fL 80.0-9 Final [place] 6.0 fL [facility] Lab (Internal) : [address] ? ? BLD - Mch 31.3 pg 26.0-3 Final [place] 2.0 pg [facility] Lab (Internal) : [address] ? ? BLD - Mchc 32.4 g/dL 31.0-3 Final [place] 5.0 [facility] g/dL Hospital Lab (Internal) : [address] ? ? BLD - Rdw 13.1 % 11.5-1 Final [place] 4.5 % [facility] (Internal) : [address] ? ? BLD Low Plt 128 10*3/uL 130-45 Final [place] 0 [facility] 10*3/u Hospital L Lab (Internal) : [address] ? ? BLD - Anc 6.16 ? Final [place] 10*3/uL [facility] (Internal) : [address] ? ? BLD High Neutro 78.2 % 40.0-7 Final [place] 5.0 % [facility] (Internal) : [address] ? ? BLD Low Lymph 10.9 % 20.0-5 Final [place] 0.0 % [facility] (Internal) : [address] ? ? BLD - [place] 9.5 % 2.0-10 Final [place] .0 % [facility] (Internal) : [address] [place] ? ? BLD Low Eos 0.0 % 1.0-6. Final [place] 0 % [facility] (Internal) : [address] [place] ? ? BLD - Baso 0.1 % 0.0-1. Final [place] 0 % [facility] (Internal) : [address], [place] ? ? BLD High Ig 1.3 % 0.0-0. Final [place] 9 % [facility] Lab (Internal) : [address] 10/12/2018 BMP, Serum or S High g/r 108 mg/dL 74-106 Fin al [place] Plasma mg/dL [facility] (Internal) : [address], [place] t ? ? S - Bun 20 mg/dL 9-20 Final [place] mg/dL [facility] (Internal) : [address] ? ? S High Crea 1.30 mg/dL 0.66-1 Final [place] .25 [facility] mg/dL Hospital Lab (Internal) : [address] ? ? S - Ca 9.4 mg/dL 8.4-10 Final [place] .2 [facility] mg/dL Hospital Lab (Internal) : [address] ? ? S - Na 139 mmol/L 137-14 Final [place] 5 [place] mmol/L Hospital Lab (Internal) : [address] ? ? S - K 4.3 mmol/L 3.5-5. Final [place] 1 [place] mmol/L Hospital Lab (Internal) : [address] ? ? S - Cl 98 mmol/L 98-107 Final [place] mmol/L [facility] (Internal) : [address] ? ? S - Tco2 30.0 mmol/L 22.0-3 Final [place] 0.0 [place] mmol/L Hospital Lab (Internal) : [address] 08/11/2018 Electrocardiogra ? Rate & ? ? ? P_nc m Rhythm [facility] [place]: [address] , [place] ? ? ? Qrs ? ? ? P_nc [facility] [place]: [address] , [place] ? ? ? MI ? ? ? P_nc Interval [facility] [place]: [address] , [place] ? ? ? QRS ? ? ? P_nc Duration [facility] [place]: [address] , [place] ? ? ? QT ? ? ? P_nc Interval [facility] [place] [facility]: [address] , [place] 08/11/2018 Venipuncture ? Number of 1 ? ? P_nc Attempts [facility] [place]: [address] , [place] ? ? ? Successfu Yes ? ? P_nc l [facility] [place]: [address] , [place] ? ? ? Dressing Pressure ? ? P_nc Band-aid Primary [facility] [place] [facility]: [address] , [place] ? ? ? Initials DM ? ? P_nc [facility] [place]: [address] , [place] ? ? ? Needle 21g ? ? P_nc Vacutainer Primar [facility] [place] [facility]: [address] , [place] ? ? ? Location Left ? ? P_nc Antecubital Prima [facility] [place] [facility]: [address] , [place] 08/10/2018 CMP, Serum or S High g/r 109 mg/dL 74-106 Fin al [place] Plasma mg/dL [facility] Hospital Lab (Internal) : [address] ? ? S - Bun 12 mg/dL 9-20 Final [place] mg/dL [facility] Lab (Internal) : [address] ? ? S - Crea 0.90 mg/dL 0.66-1 Final North .25 [place] mg/dL Hospital Lab (Internal) : [address] ? ? S - Ca 10.0 mg/dL 8.4-10 Final North .2 Country mg/dL Hospital Lab (Internal) : [address], [place] ? ? S - Na 142 mmol/L 137-14 Final [place] 5 [place] mmol/L Hospital Lab (Internal) : [address] ? ? S - K 4.1 mmol/L 3.5-5. Final [place] 1 [place] mmol/L Hospital Lab (Internal) : [address] ? ? S - Cl 104 mmol/L 98-107 Final [place] mmol/L [facility] Lab (Internal) : [address] ? ? S High Tco2 35.0 mmol/L 22.0-3 Final [place] 0.0 [place] mmol/L Hospital Lab (Internal) : [address] ? ? S - Tp 7.2 g/dL 6.3-8. Final [place] 2 g/dL [facility] Lab (Internal) : [address] ? ? S - Alb 4.0 g/dL 3.5-5. Final [place] 0 g/dL [facility] Lab (Internal) : [address] ? ? S - Tbil 0.5 mg/dL 0.2-1. Final [place] 3 [place] mg/dL Hospital Lab (Internal) : [address] ? ? S - Alp 74 U/L 38-126 Final [place] U/L [facility] Lab (Internal) : [address] ? ? S - Alt 22 U/L 21-72 Final [place] (Sgpt) U/L [facility] Lab (Internal) : [address] ? ? S - Ast 35 U/L 17-59 Final [place] (Sgot) U/L [facility] Lab (Internal) : [address] 08/10/2018 CRP, High S High Rcrp 0.57 mg/dL 0.10-0 Final [place] Sensitivity, .30 Coun try Serum or Plasma mg/dL H ospital Lab (Internal) : [address] 08/10/2018 CBC W/ Auto Diff BLD Low Wbc 4.7 10*3/uL 5.0-1 0 Final North .0 [facility] 10*3/u Hospital L Lab (Internal) : [address] ? ? BLD Low Rbc 3.98 4.60-6 Final [place] 10*6/uL .00 [facility] 10*6/u Hospital L Lab (Internal) : [address] ? ? BLD Low Hgb 12.5 g/dL 14.0-1 Final [place] 8.0 [place] g/dL Hospital Lab (Internal) : [address] ? ? BLD Low Hct 38.2 % 41.0-5 Final [place] 1.0 % [facility] Hospital Lab (Internal) : [address] ? ? BLD - Mcv 96.0 fL 80.0-9 Final [place] 6.0 fL [facility] (Internal) : [address] ? ? BLD - Mch 31.4 pg 26.0-3 Final [place] 2.0 pg [facility] Lab (Internal) : [address] ? ? BLD - Mchc 32.7 g/dL 31.0-3 Final [place] 5.0 [place] g/dL Hospital Lab (Internal) : [address] ? ? BLD - Rdw 13.2 % 11.5-1 Final [place] 4.5 % [facility] Lab (Internal) : [address] ? ? BLD - Plt 130 10*3/uL 130-45 Final [place] 0 [facility] 10*3/u Hospital L Lab (Internal) : [address] ? ? BLD - Anc 2.59 ? Final [place] 10*3/uL [facility] (Internal) : [address] ? ? BLD - Neutro 55.5 % 40.0-7 Final [place] 5.0 % [facility] (Internal) : [address] ? ? BLD - Lymph 31.0 % 20.0-5 Final [place] 0.0 % [facility] (Internal) : [address] [place] ? ? BLD High [place] 10.7 % 2.0-10 Final [place] .0 % [facility] (Internal) : [address] [place] ? ? BLD Low Eos 0.9 % 1.0-6. Final [place] 0 % [facility] (Internal) : [address] ? ? BLD - Baso 0.2 % 0.0-1. Final [place] 0 % [facility] (Internal) : [address] ? ? BLD High Ig 1.7 % 0.0-0. Final [place] 9 % [facility] Lab (Internal) : [address] 03/18/2018 CBC W/ Auto Diff BLD - Wbc 7.8 10*3/uL 5.0-1 0 Final [place] .0 [facility] 10*3/u Hospital L Lab (Internal) : [address] ? ? BLD Low Rbc 3.82 4.60-6 Final [place] 10*6/uL .00 Country 10*6/u Hospital L Lab (Internal) : [address] ? ? BLD Low Hgb 12.0 g/dL 14.0-1 Final [place] 8.0 [place] g/dL Hospital Lab (Internal) : [address] ? ? BLD Low Hct 36.7 % 41.0-5 Final [place] 1.0 % [facility] Lab (Internal) : [address] ? ? BLD High Mcv 96.1 fL 80.0-9 Final [place] 6.0 fL [facility] Lab (Internal) : [address] ? ? BLD - Mch 31.4 pg 26.0-3 Final [place] 2.0 pg [facility] Lab (Internal) : [address] ? ? BLD - Mchc 32.7 g/dL 31.0-3 Final [place] 5.0 [place] g/dL Hospital Lab (Internal) : [address] ? ? BLD - Rdw 12.6 % 11.5-1 Final [place] 4.5 % [facility] Lab (Internal) : [address] ? ? BLD - Plt 172 10*3/uL 130-45 Final [place] 0 [facility] 10*3/u Hospital L Lab (Internal) : [address]nie 03/18/2018 CMP, Serum or S High g/r 138 mg/dL 74-106 Fin al [place] Plasma mg/dL [facility] Lab (Internal) : [address] ? ? S - Bun 19 mg/dL 9-20 Final [place] mg/dL [facility] Lab (Internal) : [address], [place] ? ? S - Crea 1.20 mg/dL 0.66-1 Final [place] .25 Country mg/dL Hospital Lab (Internal) : [address] ? ? S - Ca 9.2 mg/dL 8.4-10 Final [place] .2 Country mg/dL Hospital Lab (Internal) : [address] ? ? S - Na 137 mmol/L 137-14 Final [place] 5 [place] mmol/L Hospital Lab (Internal) : [address] ? ? S - K 3.5 mmol/L 3.5-5. Final [place] 1 [place] mmol/L Hospital Lab (Internal) : [address] ? ? S - Cl 101 mmol/L 98-107 Final [place] mmol/L [facility] Lab (Internal) : [address] ? ? S - Tco2 25.0 mmol/L 22.0-3 Final [place] 0.0 [place] mmol/L Hospital Lab (Internal) : [address] ? ? S - Tp 7.8 g/dL 6.3-8. Final [place] 2 g/dL [facility] Lab (Internal) : [address] ? ? S - Alb 3.9 g/dL 3.5-5. Final [place] 0 g/dL [facility] Lab (Internal) : [address] ? ? S - Tbil 0.7 mg/dL 0.2-1. Final [place] 3 [place] mg/dL Hospital Lab (Internal) : [address] ? ? S - Alp 83 U/L 38-126 Final [place] U/L [facility] Lab (Internal) : [address] ? ? S - Alt 63 U/L 21-72 Final [place] (Sgpt) U/L [facility] Lab (Internal) : [address] ? ? S High Ast 68 U/L 17-59 Final [place] (Sgot) U/L [facility] Lab (Internal) : [address] 03/18/2018 Uric Acid, Serum S - Urca 6.2 mg/dL 3.5-8. Final [place] or Plasma 5 Country mg/dL Hospital Lab (Internal) : [address] 03/18/2018 Differential, BLD - Polys 75 % 40-75 Final [place] Manual, Blood % Cou ntr Hospital Lab (Internal) : [address] ? ? BLD - Bands 1 % 0-5 % Final [facility] Lab (Internal) : [address] ? ? BLD Low Lymphs 15 % 20-[address] [facility] Lab (Internal) : [address] ? ? BLD - [place] 7 % 2-10 % Final [facility] Lab (Internal) : [address] ? ? BLD - Eos 1 % 0-6 % Final [facility] (Internal) : [address] ? ? BLD - Baso 1 % 0-1 % Final [facility] (Internal) : [address] ? ? BLD - Atyp 0 % ? Final [facility] Lab (Internal) : [address] ? ? BLD - Plts, adequate adequa Final [place] Est. te [facility] Lab (Internal) : [address] ? ? BLD - RBC normal normal Final [facility] Hospital Lab (Internal) : [address] 03/18/2018 Neutrophil BLD - Anc-manua 5.90 ? Final [place] Count, Absolute l 10*3/uL [facility] (Anc), Blood Hosp ital Lab (Internal) : [address] 03/18/2018 Culture, N/A - Final microbiolog ? Final [place] Aerobic, y results Count ry [facility] Lab (Internal) : [address] 03/18/2018 Cell Count, Body MISC - Source, lipemic ? Final [place] Fluid [facility] Lab (Internal) : [address] ? ? MISC - Color, Bf yellow ? Final [facility] Lab (Internal) : [address] ? ? MISC - Clarity cloudy ? Final [facility] (Internal) : [address] ? ? MISC - WBC, Bf 37.54 ? Final [place] (Auto) 10*3/uL [facility] Lab (Internal) : [address], [place] ? ? MISC - RBC, Bf 0.01 ? Final [place] (Auto) 10*6/uL [facility] (Internal) : [address] ? ? MISC - Polys, Bf 96 % ? Final [place] (Auto) [facility] (Internal) : [address] [place] ? ? MISC - Lymphs, 3 % ? Final [place] Bf(auto) [facility] (Internal) : [address], [place] ? ? MISC - Monocyte, 1 % ? Final [place] Bf (Auto) [facility] (Internal) : [address], [place] ? ? MISC - Eos, Bf 0 % ? Final [place] (Auto) [facility] (Internal) : [address], [place] ? ? MISC - Baso, Bf 0 % ? Final [place] (Auto) [facility] (Internal) : [address] 03/18/2018 Crystals, Body MISC - Bf Cryst ? ? Fi nal [place] Fluid [facility] (Internal) : [address], Daniel t 03/17/2018 CBC W/ Auto Diff BLD - Wbc 8.1 10*3/uL 5.0-1 0 Final [place] .0 [facility] 10*3/u Hospital L Lab (Internal) : [address] ? ? BLD Low Rbc 3.95 4.60-6 Final [place] 10*6/uL .00 Country 10*6/u Hospital L Lab (Internal) : [address] ? ? BLD Low Hgb 12.3 g/dL 14.0-1 Final [place] 8.0 Country g/dL Hospital Lab (Internal) : [address] ? ? BLD Low Hct 37.4 % 41.0-5 Final [place] 1.0 % [facility] (Internal) : [address] ? ? BLD - Mcv 94.7 fL 80.0-9 Final [place] 6.0 fL [facility] (Internal) : [address] ? ? BLD - Mch 31.1 pg 26.0-3 Final [place] 2.0 pg [facility] (Internal) : [address] ? ? BLD - Mchc 32.9 g/dL 31.0-3 Final [place] 5.0 [place] g/dL Hospital Lab (Internal) : [address] ? ? BLD - Rdw 12.3 % 11.5-1 Final [place] 4.5 % [facility] (Internal) : [address] ? ? BLD - Plt 186 10*3/uL 130-45 Final [place] 0 [facility] 10*3/u [facility] (Internal) : [address] ? ? BLD - Anc 5.70 ? Final [facility] 10*3/uL [facility] ([facility] : [address] t ? ? BLD - Neutro 70.4 % 40.0-7 Final [facility] 5.0 % [facility] ([facility] : [address] ? ? BLD Low Lymph 17.7 % 20.0-5 Final [facility] 0.0 % [facility] ([facility] : [address] t ? ? BLD High [place] 10.7 % 2.0-10 Final [place] .0 % [facility] ([facility] : [address] ? ? BLD Low Eos 0.4 % 1.0-6. Final [place] 0 % [facility] (Internal) : [address] ? ? BLD - Baso 0.2 % 0.0-1. Final [place] 0 % [facility] (Internal) : [address] ? ? BLD - Ig 0.6 % 0.0-0. Final [place] 9 % [facility] (Internal) : [address] t 03/17/2018 Partial BLD - PTT (Ip) 26 s 22-35 Final No rth Thromboplastin s Co untry Time Hospital Lab (Internal) : [address] t 03/17/2018 Prothrombin Time BLD - Pt 10.8 S 9.1-11 Fin al [place] .7 S [facility] (Internal) : [address] ? ? BLD - Inr 1.0 ? Final [facility] (Internal) : [address] 03/17/2018 Troponin I, S - Trop <0.06 NG/mL 0.00-0 Fin al [place] Serum or Plasma .06 C ountry NG/mL Hospital Lab (Internal) : [address] 03/17/2018 CMP, Serum or S High g/r 141 mg/dL 74-106 Fin [facility] Plasma mg/dL [facility] (Internal) : [address] t ? ? S - Bun 12 mg/dL 9-20 Final [place] mg/dL [facility] (Internal) : [address] ? ? S - Crea 0.90 mg/dL 0.66-1 Final [place] .25 [place] mg/dL Hospital Lab (Internal) : [address] t ? ? S - Ca 9.5 mg/dL 8.4-10 Final [place] .2 [facility] mg/dL Hospital Lab (Internal) : [address] t ? ? S - Na 139 mmol/L 137-14 Final [place] 5 [place] mmol/L [facility] Lab (Internal) : [address] ? ? S - K 3.9 mmol/L 3.5-5. Final [place] 1 [place] mmol/L [facility] Lab (Internal) : [address] t ? ? S - Cl 104 mmol/L 98-107 Final [place] mmol/L [facility] (Internal) : [address] ? ? S - Tco2 24.0 mmol/L 22.0-3 Final [place] 0.0 [place] mmol/L Hospital Lab (Internal) : [address] t ? ? S - Tp 8.1 g/dL 6.3-8. Final [place] 2 g/dL [facility] (Internal) : [address] ? ? S - Alb 4.1 g/dL 3.5-5. Final [place] 0 g/dL [facility] (Internal) : [address] ? ? S - Tbil 0.8 mg/dL 0.2-1. Final [place] 3 [place] mg/dL Hospital Lab (Internal) : [address] ? ? S - Alp 91 U/L 38-126 Final [place] U/L [facility] (Internal) : [address] ? ? S - Alt 52 U/L 21-72 Final [place] (Sgpt) U/L [facility] (Internal) : [address] ? ? S - Ast 57 U/L 17-59 Final [place] (Sgot) U/L [facility] (Internal) : [address] 08/06/2017 Venipuncture BLD ? Venpn* ? ? Final [facility] (Internal) : [address] 08/06/2017 Lipid Panel, S ? Chol 153 mg/dL 50-200 Pallavi l [place] Serum mg/dL [facility] (Internal) : [address] ? ? S ? Trig 73 mg/dL 10-150 Final [place] mg/dL [facility] (Internal) : [address] t ? ? S ? Hdl 46 mg/dL 40-60 Final [place] mg/dL [facility] (Internal) : [address] ? ? S ? Ldl 92 mg/dL 0-130 Final [place] mg/dL [facility] (Internal) : [address] 08/06/2017 CRP, High S High Rcrp 0.41 mg/dL 0.10-0 Final [place] Sensitivity, .30 Coun try Serum or Plasma mg/dL H ospital Lab (Internal) : [address] 07/06/2017 Neutrophil BLD ? Anc-manua 5.23 ? Final [place] Count, Absolute l 10*3/uL [facility] (Anc) Blood Hosp ital Lab (Internal) : [address] 07/06/2017 Differential, BLD High Polys 89 % 40-75 Final [place] Manual, Blood % [facility] Lab (Internal) : [address] t ? ? BLD ? Bands 0 % 0-5 % Final [facility] (Internal) : [address] ? ? BLD Low Lymphs 9 % 20-[address] [facility] (Internal) : [address] t ? ? BLD ? [place] 2 % 2-10 % Final [facility] (Internal) : [address] ? ? BLD ? Eos 0 % 0-6 % Final [facility] (Internal) : [address] t ? ? BLD ? Baso 0 % 0-1 % Final [facility] (Internal) : [address] ? ? BLD ? Atyp 0 % ? [facility] : [address] ? ? BLD ? Plts, adequate adequa Final [place] Est. te [facility] (Internal) : [address] ? ? BLD ? RBC normal normal Final [place] Morphology Countr y Hospital Lab (Internal) : [address] t 07/06/2017 CMP, Serum or S High g/r 161 mg/dL 74-106 Fin al [place] Plasma mg/dL [facility] (Internal) : [address] t ? ? S High Bun 25 mg/dL 9-20 Final [place] mg/dL [facility] (Internal) : [address] ? ? S ? Crea 1.00 mg/dL 0.66-1 Final [place] .25 [facility] mg/dL Hospital Lab (Internal) : [address] t ? ? S ? Ca 10.0 mg/dL 8.4-10 Final [place] .2 [facility] mg/dL Hospital Lab (Internal) : [address] ? ? S ? Na 139 mmol/L 137-14 Final [place] 5 [place] mmol/L Hospital Lab (Internal) : [address] t ? ? S ? K 4.3 mmol/L 3.5-5. Final [place] 1 [place] mmol/L Hospital Lab (Internal) : [address] t ? ? S ? Cl 101 mmol/L 98-107 Final [place] mmol/L [facility] (Internal) : [address] ? ? S ? Tco2 26.0 mmol/L 22.0-3 Final [place] 0.0 [facility] mmol/L Hospital Lab (Internal) : [address] ? ? S ? Tp 7.9 g/dL 6.3-8. Final [place] 2 g/dL [facility] (Internal) : [address] t ? ? S ? Alb 4.5 g/dL 3.5-5. Final [place] 0 g/dL [facility] (Internal) : [address] ? ? S ? Tbil 1.1 mg/dL 0.2-1. Final [place] 3 [place] mg/dL Hospital Lab (Internal) : [address] ? ? S ? Alp 93 U/L 38-126 Final [place] U/L [facility] (Internal) : [address] ? ? S ? Alt 32 U/L 21-72 Final [place] (Sgpt) U/L [facility] (Internal) : [address] ? ? S ? Ast 36 U/L 17-59 Final [place] (Sgot) U/L [facility] (Internal) : [address] 07/06/2017 ESR (Erythrocyte BLD High Esr 22 mm/h 0-20 Fi nal [place] Sedimentation mm/h Cou ntry Rate), Blood Hosp ital Lab (Internal) : [address] 07/06/2017 CBC W/ Auto Diff BLD ? Wbc 5.9 10*3/uL 5.0-1 0 Final [place] .0 [facility] 10*3/u Hospital L Lab (Internal) : [address] ? ? BLD Low Rbc 4.35 4.60-6 Final [place] 10*6/uL .00 [facility] 10*6/u Hospital L Lab (Internal) : [address] ? ? BLD Low Hgb 13.8 g/dL 14.0-1 Final [place] 8.0 [facility] g/dL Hospital Lab (Internal) : [address] ? ? BLD ? Hct 41.2 % 41.0-5 Final [place] 1.0 % [facility] (Internal) : [address] ? ? BLD ? Mcv 94.7 fL 80.0-9 Final [place] 6.0 fL [facility] ([facility] : [address] ? ? BLD ? Mch 31.7 pg 26.0-3 Final [place] 2.0 pg [facility] (Internal) : [address] ? ? BLD ? Mchc 33.5 g/dL 31.0-3 Final [place] 5.0 [facility] g/dL Hospital Lab (Internal) : [address] ? ? BLD ? Rdw 13.2 % 11.5-1 Final [place] 4.5 % [facility] (Internal) : [address] ? ? BLD ? Plt 155 10*3/uL 130-45 Final [place] 0 [facility] 10*3/u Hospital L Lab (Internal) : [address] Past Encounters 12/02/2020 Bronchiectasis; Cough Jennifer George MD: [address] [place] [address], Ph. 11/14/2020 Chronic Obstructive Lung Disease; Bronch iectasis Jennifer George MD: [address] [place] [address], Ph. 11/06/2020 Chronic Obstructive Lung Disease; Bronch iectasis Jennifer George MD: [address] [place] [address], Ph. 05/16/2020 Pain of Right Ankle Joint Andrew Samuel, DO: [address] [place] [address], Ph. 05/09/2020 Large Prostate; Chronic Obstructive Lung Disease; Pain of Right Ankle Joint Andrew Samuel, DO: [address] [place] [address], Ph. 02/23/2020 Nocturia; Urinary Hesitancy Due to Benig n Prostatic Hypertrophy; Lower Urinary Tract Symptoms Due to Benign Prostatic Hypertrophy; Varicocele; Bilateral Atrophy of Testes Reuben Clark MD: [address] [place] [address], Ph. 02/08/2020 Chronic Obstructive Lung Disease; Benign Prostatic Hyperplasia Andrew Samuel, DO: [address] [place] [address], Ph. 11/23/2019 Chronic Obstructive Lung Disease; Acute Bronchitis Andrew Samuel, DO: [address] [place] [address], Ph. 11/06/2019 Haja Huffman MD: [address] [facility], [address], [place] [address], Ph. 11/03/2019 Acute Exacerbation of Bronchiectasis Marquita Zamora SIGNS CLEANER: [address] [facility] [place] [address], Ph. Social History Tobacco Smoking Status Never Smoker Vaccine List Vaccine Type COVID-19, mRNA, LNP-S, PF, 100 mcg/0.5 m L dose 12/03/2020 12/31/2020 influenza, high dose seasonal 08/04/2017?0.5 mL 07/09/2018?0.5 mL influenza, injectable, quadrivalent 07/03/2020 influenza, injectable, quadrivalent, pre servative free 07/18/2015?0.5 mL influenza, seasonal, injectable, preserv ative free 07/04/2016 pneumococcal conjugate PCV 13 09/23/2016?0.5 mL pneumococcal polysaccharide PPV23 10/11/1999 10/23/2015?0.5 mL Td (adult), adsorbed 10/11/2000 Tdap 03/02/2018?0.5 mL Plan of Care Reminders Provider Appointments None ? ? recorded. Lab None ? ? recorded. Referral None ? ? recorded. Procedures None ? ? recorded. Surgeries None ? ? recorded. Imaging None ? ? recorded. Vitals 12/02/2020 09:00AM Follow Up 30 Height Weight BMI Blood Pressure 165.1 cm 89 kg 32.7 kg/m2 131/69 mm[Hg] 11/14/2020 11:30AM Follow Up 30 Height Weight BMI Blood Pressure 165.1 cm 89.1 kg 32.7 kg/m2 121/62 mm[Hg] 11/06/2020 03:00PM Follow Up 30 Height Weight BMI Blood Pressure 165.1 cm 90 kg 33 kg/m2 118/61 mm[Hg] 05/16/2020 02:00PM Procedure 20 Height Weight BMI Blood Pressure 165.1 cm 83.01 kg 30.5 kg/m2 128/80 mm[Hg] 05/09/2020 08:40AM Follow Up 20 Height Weight BMI Blood Pressure 165.1 cm 83.01 kg 30.5 kg/m2 116/70 mm[Hg] 02/23/2020 11:00AM Office 15 Height Weight BMI Blood Pressure 165.1 cm 80.74 kg 29.6 kg/m2 132/68 mm[Hg] 02/08/2020 08:00AM Follow Up 20 Height Weight BMI Blood Pressure 165.1 cm 79.38 kg 29.1 kg/m2 134/78 mm[Hg] 11/23/2019 02:00PM Acute 20 Height Weight BMI Blood Pressure 165.1 cm 77.11 kg 28.3 kg/m2 124/64 mm[Hg] 11/03/2019 02:00PM Acute 20 Height Weight BMI Blood Pressure 165.1 cm 77.56 kg 28.5 kg/m2 120/70 mm[Hg] 05/31/2019 08:00AM Follow Up 20 Height Weight BMI Blood Pressure 165.1 cm 81.65 kg 30 kg/m2 120/84 mm[Hg] 03/01/2019 02:15PM Office 15 Height 165.1 cm 02/28/2019 03:40PM Follow Up 20 Height Weight BMI Blood Pressure 165.1 cm 89.36 kg 32.8 kg/m2 130/82 mm[Hg] 01/31/2019 09:20AM Follow Up 20 Height Weight BMI Blood Pressure 165.1 cm 92.99 kg 34.1 kg/m2 118/72 mm[Hg] 01/17/2019 08:40AM Follow Up 20 Height Weight BMI Blood Pressure 165.1 cm 102.06 kg 37.4 kg/m2 144/86 mm[Hg] 12/29/2018 09:00AM Follow Up 30 Height Weight BMI Blood Pressure 165.1 cm 95.9 kg 35.2 kg/m2 120/60 mm[Hg] 12/21/2018 02:00PM Follow Up 30 Height Weight BMI Blood Pressure 165.1 cm 95.7 kg 35.1 kg/m2 140/70 mm[Hg] 12/16/2018 09:45AM Follow Up 15 Height 165.1 cm 11/30/2018 10:20AM Follow Up 20 Height Weight BMI Blood Pressure 165.1 cm 96.62 kg 35.4 kg/m2 132/74 mm[Hg] 11/23/2018 10:00AM Follow Up 30 Height Weight BMI Blood Pressure 165.1 cm 94 kg 34.5 kg/m2 130/86 mm[Hg] 11/18/2018 12:30PM Follow Up 30 Height Weight BMI Blood Pressure 165.1 cm 96.1 kg 35.3 kg/m2 136/70 mm[Hg] 11/16/2018 10:15AM Follow Up 15 Height Blood Pressure 165.1 cm 146/82 mm[Hg] 11/10/2018 08:30AM Follow Up 30 Height Weight BMI Blood Pressure 165.1 cm 95.7 kg 35.1 kg/m2 142/80 mm[Hg] 11/02/2018 09:45AM Follow Up 15 Height Weight BMI 165.1 cm 95.62 kg 35.1 kg/m2 10/26/2018 09:00AM Follow Up 30 Height Weight BMI Blood Pressure 165.1 cm 95 kg 34.9 kg/m2 148/70 mm[Hg] 10/20/2018 07:40AM Follow Up 20 Height Weight BMI Blood Pressure 165.1 cm 93.89 kg 34.4 kg/m2 134/84 mm[Hg] 10/13/2018 08:20AM Acute 20 Height Weight BMI Blood Pressure 165.1 cm 92.53 kg 33.9 kg/m2 110/68 mm[Hg] 10/12/2018 10:45AM Acute 15 Height Weight BMI Blood Pressure 165.1 cm 94.26 kg 34.6 kg/m2 126/64 mm[Hg] 08/23/2018 03:20PM Follow Up 20 Height Weight BMI Blood Pressure 165.1 cm 97.07 kg 35.6 kg/m2 140/80 mm[Hg] 08/10/2018 01:00PM Acute 20 Height Weight BMI Blood Pressure 165.1 cm 98.43 kg 36.1 kg/m2 142/84 mm[Hg] 07/18/2018 02:20PM Acute 20 Height Weight BMI Blood Pressure 165.1 cm 95.71 kg 35.1 kg/m2 146/80 mm[Hg] 06/08/2018 10:00AM Follow Up 15 Height Weight BMI Blood Pressure 165.1 cm 95.84 kg 35.2 kg/m2 145/78 mm[Hg] 05/11/2018 12:30PM Follow Up 30 Height Weight BMI Blood Pressure 165.1 cm 96.4 kg 35.4 kg/m2 130/68 mm[Hg] 05/05/2018 01:45PM Follow Up 15 Height Weight BMI Blood Pressure 165.1 cm 95.35 kg 35 kg/m2 152/82 mm[Hg] 04/15/2018 11:00AM Follow Up 20 Height Weight BMI Blood Pressure 165.1 cm 95.25 kg 34.9 kg/m2 138/82 mm[Hg] 04/08/2018 08:40AM Acute 20 Height Weight BMI Blood Pressure 165.1 cm 92.53 kg 33.9 kg/m2 120/76 mm[Hg] 04/06/2018 01:00PM Follow Up 15 Height Weight BMI Blood Pressure 165.1 cm 94.39 kg 34.6 kg/m2 164/78 mm[Hg] 03/31/2018 07:40AM Follow Up 20 Height Weight BMI Blood Pressure 165.1 cm 97.07 kg 35.6 kg/m2 134/84 mm[Hg] 03/24/2018 01:45PM Consult 30 Height Weight BMI Blood Pressure 165.1 cm 93.35 kg 34.2 kg/m2 156/84 mm[Hg] 03/23/2018 10:45AM Follow Up 15 Height Weight BMI Blood Pressure 165.1 cm 93.35 kg 34.2 kg/m2 138/64 mm[Hg] 03/18/2018 09:30AM Acute 30 Height Weight BMI Blood Pressure 165.1 cm 94.17 kg 34.5 kg/m2 128/64 mm[Hg] 09/14/2017 Weight Blood Pressure 89.36 kg 112/74 mm[Hg] 08/06/2017 Height Weight Blood Pressure 165.1 cm 88 kg 120/60 mm[Hg] 08/04/2017 Weight Blood Pressure 88.9 kg 132/62 mm[Hg] 07/21/2017 Height Weight Blood Pressure 165.1 cm 94.8 kg 140/70 mm[Hg] 07/06/2017 Height Weight Blood Pressure 165.1 cm 86.64 kg 120/80 mm[Hg] 02/09/2017 Height Weight Blood Pressure 165.1 cm 87.54 kg 142/86 mm[Hg] 09/23/2016 Height Weight Blood Pressure 165.1 cm 84.82 kg 94/60 mm[Hg] 09/08/2016 Height Weight Blood Pressure 165.1 cm 85.73 kg 118/76 mm[Hg] 07/30/2016 Weight Blood Pressure 83.01 kg 100/66 mm[Hg] 06/25/2016 Weight Blood Pressure 83.01 kg 112/76 mm[Hg] 05/21/2016 Height Weight Blood Pressure 165.1 cm 80.74 kg 130/64 mm[Hg] 03/10/2016 Height Weight Blood Pressure 165.1 cm 85.73 kg 102/56 mm[Hg] 12/19/2015 Height Weight Blood Pressure 165.1 cm 87.54 kg 110/68 mm[Hg] 12/06/2015 Height Weight Blood Pressure 165.1 cm 88.45 kg 94/60 mm[Hg] 12/03/2015 Height Weight Blood Pressure 165.1 cm 88 kg 116/70 mm[Hg] 11/28/2015 Height Weight Blood Pressure 165.1 cm 86.18 kg 121/60 mm[Hg] 10/23/2015 Height Weight Blood Pressure 165.1 cm 87.32 kg 110/58 mm[Hg] 09/02/2015 Height Weight Blood Pressure 165.1 cm 92.99 kg 134/84 mm[Hg] 08/16/2015 Height Weight Blood Pressure 165.1 cm 92.08 kg 116/72 mm[Hg] 07/17/2015 Height Weight Blood Pressure 165.1 cm 92.08 kg 100/50 mm[Hg] 06/05/2015 Height Weight Blood Pressure 165.1 cm 92.53 kg 140/60 mm[Hg] 06/03/2015 Weight Blood Pressure 91.85 kg 120/70 mm[Hg] 05/13/2015 Weight Blood Pressure 93.67 kg 120/70 mm[Hg] 05/01/2015 Height Weight Blood Pressure 165.1 cm 94.8 kg 118/62 mm[Hg] 04/24/2015 Blood Pressure 132/70 mm[Hg] 03/25/2015 Weight Blood Pressure 92.76 kg 154/90 mm[Hg] 03/20/2015 Height Weight Blood Pressure 165.1 cm 93.44 kg 140/70 mm[Hg] 03/19/2015 Weight Blood Pressure 93.44 kg 150/80 mm[Hg] 03/07/2015 Height Weight Blood Pressure 165.1 cm 92.99 kg 108/50 mm[Hg] 09/18/2014 Height Weight Blood Pressure 165.1 cm 80.29 kg 124/66 mm[Hg] 09/11/2014 Height Weight Blood Pressure 165.1 cm 80.29 kg 154/66 mm[Hg] 08/14/2014 Height Weight Blood Pressure 165.1 cm 80.29 kg 144/86 mm[Hg] 05/22/2014 Height Weight Blood Pressure 165.1 cm 80.29 kg 118/78 mm[Hg] 05/08/2014 Blood Pressure 140/78 mm[Hg] 01/10/2008 Blood Pressure 136/78 mm[Hg] 12/14/2005 Height Weight Blood Pressure 165.1 cm 80.29 kg 138/78 mm[Hg]
== END 2021-05-01 21:59 | disposition home or self-care (01) ==
LOC: LBN 21:58
PROVIDERS: Visit Provider Student in an Organized Health Care Education/Training Program
DX: J47.9 Bronchiectasis, uncomplicated (principal)
CPT/HCPCS: 87077; 87116; 87206; 87070; 87205

== ENCOUNTER 2021-05-02 07:48 | Outpatient (CLI) | payer MEDICARE, SELFPAY ==
--- NOTE | 2021-05-02 15:23 | W.PFT ---
Date of service: 05/02/21 Time of Service: 12:56 Pulmonary Function Test Result Interpretation Spirometry: There is severe airflow obstruction. There is no significant bronchodilator change. Lung Volumes: There is hyperinflation present. There is significant air trapping. Diffusion Capacity: There is reduced diffusion. Airway Pressure: There is significant airways resistance that improves with bronchodilator therapy. 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
[2021-05-02] MEDS: Inhaler, Assist Device 1 EACH MC (16:08)
[2021-05-02] MEDS: Albuterol HFA 18 GM 200 PUFF INH IH (16:08)
== END 2021-05-02 07:49 | disposition home or self-care (01) ==
LOC: RT 08:33
PROVIDERS: Visit Provider Student in an Organized Health Care Education/Training Program
DX: J47.9 Bronchiectasis, uncomplicated (principal)
CPT/HCPCS: 94060; 94726; 94729

== ENCOUNTER 2021-05-07 03:25 | Outpatient (CLI) | payer MEDICARE, SELFPAY ==
[2021-05-09 15:55] LABS: TB Interpretation Negative (Negative); TB2 Ag minus Nil 0.01 IU/mL
== END 2021-05-07 03:26 | disposition home or self-care (01) ==
PROVIDERS: PCP Neuromusculoskeletal Medicine & OMM; Visit Provider Student in an Organized Health Care Education/Training Program
DX: J47.9 Bronchiectasis, uncomplicated (principal)
CPT/HCPCS: 36415; 86480

== ENCOUNTER 2021-05-07 20:26 | Outpatient (REF) | payer MEDICARE, SELFPAY | END 2021-05-07 20:27 | disposition home or self-care (01) | LOC: LBN 20:26 | PROVIDERS: PCP Neuromusculoskeletal Medicine & OMM; Visit Provider Student in an Organized Health Care Education/Training Program | DX: J47.9 Bronchiectasis, uncomplicated (principal) | CPT/HCPCS: 87116; 87206 ==

== ENCOUNTER 2021-05-09 00:30 | Outpatient (CLI) | payer MEDICARE, SELFPAY ==
[2021-05-09] MEDS: Albuterol HFA 18 GM 200 PUFF INH IH (09:11)
[2021-05-09] MEDS: Inhaler, Assist Device 1 EACH MC (09:12)
--- NOTE | 2021-05-09 14:09 | W.PFT ---
Date of service: 05/09/21 Time of Service: 07:59 Pulmonary Function Test Result Interpretation Spirometry: There is moderate airflow obstruction. There is also a restrictive pattern with a low FVC. There was no significant change in FEV1 or FVC with 7% saline administration via nebulizer. Impression No significant decrease in FEV1 or FVC with hypertonic saline solution administration. Spirometry is consistent with testing completed 05/02/2021. Clinical Correlation therefore is recommended.
== END 2021-05-09 00:31 | disposition home or self-care (01) ==
LOC: RT 00:30
PROVIDERS: PCP Neuromusculoskeletal Medicine & OMM; Visit Provider Student in an Organized Health Care Education/Training Program
DX: J47.9 Bronchiectasis, uncomplicated (principal); R94.2 Abnormal results of pulmonary function studies
CPT/HCPCS: 94060